=== PATIENT | female | born 1985 | race Caucasian/White ===

== ENCOUNTER 2022-07-15 17:27 | Observation (INO) | payer OTHER ==
[~2022-07-15] VITALS: Ht 162.6 cm; Wt 155.6 kg
[2022-07-15 17:33] VITALS: BP 177/104
--- NOTE | 2022-07-15 18:00 | NUR ---
36 Y/O FEMALE C/O SHORTNESS OF BREATH THAT STARTED SUDDENLY TODAY. STATES SHORTNESS OF BREATH IS CONSTANT AND WORSENS WITH MOVEMENT. STATES SHE HAS A LOT OF STRESS AT HOME AND UNSURE IF THAT IS CAUSE. ALSO C/O 09/06, THROBBING HEADACHE + BLURRED VISION AND DIZZINESS X TODAY. DENIES SYNCOPE, FEVER, CHILLS, COUGH, NVD. TOOK ADVIL WITHOUT RELIEF. SMOKER X 15 YEARS 1/PER DAY. PMH: DENIES NKA
--- NOTE | 2022-07-15 18:52 | NUR ---
LAB AT BEDSIDE
--- NOTE | 2022-07-15 18:53 | NUR ---
DR GONZALEZ AT BEDSIDE FOR EVALUATION
[2022-07-15] MEDS ORDERED: METOCLOPRAMIDE 10 MG TAB PO ONE (18:55)
[2022-07-15] MEDS ORDERED: ACETAMINOPHEN EXTRA STRENGTH 500 MG TAB PO ONE (18:55)
[2022-07-15] MEDS ORDERED: ALBUTEROL SULFATE/IPRATROPIU 3 ML SOL IH ONE (18:55)
[2022-07-15] MEDS ORDERED: MECLIZINE 25 MG TAB PO ONE (18:55)
--- NOTE | 2022-07-15 18:58 | NUR ---
LAB AT BEDSIDE
--- NOTE | 2022-07-15 18:58 | NUR ---
DWIGHT GilbertNORMAN) COLLECTED AND HANDED TO DENISE OROZCO
--- NOTE | 2022-07-15 19:08 | NUR ---
XRAY AT BEDSIDE
[2022-07-15 19:18] LABS: BASOPHILS % (AUTO) 0.4 % (0.0-2.0); EOSINOPHILS # (AUTO) 0.2 K/uL (0-0.4); EOSINOPHILS % (AUTO) 2.2 % (0.0-4.0); HEMATOCRIT 37.7 % (36-48); HEMOGLOBIN 12.5 g/dL (12.0-16.0); LYMPHOCYTES # (AUTO) 2.2 K/uL (2.5-16.5); LYMPHOCYTES % (AUTO) 23.7 % (20.5-51.1); MEAN CORPUSCULAR HEMOGLOBIN 28 pg (27-31); MEAN CORPUSCULAR HGB CONC 33 g/dL (33-37); MEAN CORPUSCULAR VOLUME 84.8 fL (80-94); MONOCYTES # (AUTO) 0.4 K/uL (0.8-1.0); MONOCYTES % (AUTO) 4.9 % (1.7-9.3); NEUTROPHILS # (AUTO) 6.3 K/uL (1.8-7.7); NEUTROPHILS % (AUTO) 68.8 % (42.2-75.2); PLATELET COUNT (AUTO) 192 K/uL (140-450); RED BLOOD CELL COUNT(AUTO) 4.45 MIL/uL (4.20-5.40); WHITE BLOOD COUNT (AUTO) 9.1 K/uL (4.8-10.8)
--- NOTE | 2022-07-15 19:26 | NUR ---
Pt report given to KAIDEN Fonseca. Transfer of care at this time.
[2022-07-15 19:36] LABS: ALBUMIN 3.1 g/dL (3.4-5.0); ASPARTATE AMINOTRANSFERASE 26 U/L (15-37); CHLORIDE 103 mmol/L (98-107); CREATININE 0.8 mg/dL (0.6-1.3); GFR ARICAN-AMERICAN 103 mL/min (>90); GLUCOSE 183 mg/dL (74-106); SODIUM SERUM 139 mmol/L (136-145); TOTAL BILIRUBIN 0.2 mg/dL (0.0-1.0); UREA NITROGEN, BLOOD 13 mg/dL (7-18)
--- NOTE | 2022-07-15 19:47 | NUR ---
RT AT BEDSIDE TO GIVE BREATHING TREATMENT
[2022-07-15] MEDS ORDERED: FUROSEMIDE 40 MG/4 ML VIAL IVP ONE (21:15)
[2022-07-15] MEDS ORDERED: ONDANSETRON 4 MG/2 ML VIAL IVP PRN (21:50)
[2022-07-15] MEDS ORDERED: LORazepam 2 MG/ML VIAL IVP PRN (21:50)
[2022-07-15] MEDS ORDERED: HYDROmorphone PFS 2 MG/ML SYR IVP PRN (21:50)
[2022-07-15 22:00] LABS: APPEARANCE,URINE SL CLOUDY (CLEAR); BILIRUBIN,URINE NEGATIVE (NEGATIVE); BLOOD, URINE NEGATIVE (NEGATIVE); COLOR,URINE YELLOW (YELLOW); LEUKOCYTE ESTERASE ,URINE NEGATIVE (NEGATIVE); NITRITE, URINE NEGATIVE (NEGATIVE); UGLUCOSE NEGATIVE (NEGATIVE)
[2022-07-15 22:24] LABS: BARBITURATE, URINE NEGATIVE ng/ml (NEG <=200); BENZODIAZEPINE, URINE NEGATIVE ng/mL (NEG <=200); CANNABINOID, URINE NEGATIVE ng/mL (NEG <=50); COCAINE, URINE NEGATIVE ng/mL (NEG <=300); OPIATE, URINE NEGATIVE ng/mL (NEG <=2000); PHENCYCLIDINE SCREEN,URINE NEGATIVE ng/mL (NEG <=25)
[2022-07-16 00:30] VITALS: BP 122/62
--- NOTE | 2022-07-16 00:30 | NUR ---
Patient will be admitted to care of DR BARNETT. Admited to TELE. Will go to room 105A. Belongings list completed. Report to KAIDEN FLORES.
--- NOTE | 2022-07-16 00:30 | NUR ---
RECEIVED PT FROM ER / WINIFRED WALKS TO BED , AAOX4 , IV SITE INTACT AND PATENT . NID - O2 SAT WNL . DENIES PAIN AT THIS TIME . GOT TYLENOL AT ER FOR MADRIGAL . ADMISSION ASSESSMENT - DONE , FALL RISK DUE TO DIZZINESS , PUT PT ON FALL RISK PREVENTION , REMINDS HER TO HIT THE CALL LIGHT WHENEVER SHE NEEDS TO GO TO BATH ROOM , REMINDS HER TO HIT THE CALL LIGHT WHENEVER SHE GOT PEE - STRICTLY I AND O - PLAN OF CARE DISCUSS - VERBALIZES UNDERSTANDING . ON TELE MONITOR , DENIES SOB AT THIS TIME , WILL CONT. TO MONITOR .
--- NOTE | 2022-07-16 00:35 | NUR ---
MORE URINE OBTAINED AND HANDED TO LAB TO COMPLETE URINE TESTS
--- NOTE | 2022-07-16 02:00 | NUR ---
SLEEPING , AROUSABLE , NO COMPLAIN MADE AT THIS TIME , CALL LIGHT WITHIN REACH .
[2022-07-16 04:00] VITALS: BP 122/62
--- NOTE | 2022-07-16 04:00 | NUR ---
SLEEPING , AROUSABLE , DENIES PAIN , ON TELE MONITOR . CALL LIGHT WITHIN REACH . O2 SAT 95 % ,
--- NOTE | 2022-07-16 05:46 | NUR ---
NO YELLOW GOWN FIT FOR PT - WILL ENDORSE.
[2022-07-16] MEDS ORDERED: LORazepam 1 MG TAB PO PRN (05:55)
--- NOTE | 2022-07-16 07:05 | NUR ---
RECEIVED BEDSIDE REPORT FROM MAILROOM COORDINATOR NURSE FOR CONTINUITY OF CARE. PATIENT IS AWAKE, ALERT, AND COOPERATIVE. US TECH AT BEDSIDE. RESPIRATION EVEN UNLABORED ON ROOM AIR. NO DISTRESS NOTED. SKIN IS WARM AND DRY. IV NOTED SALINE LOCKED. PLAN OF CARE DISCUSSED. ALL SAFETY MEASURES IN PLACE. BED IS AT LOW POSITION. CALL LIGHT WITHIN REACH. WILL CONTINUE TO MONITOR.
[2022-07-16 07:11] LABS: BASOPHILS % (AUTO) 0.5 % (0.0-2.0); EOSINOPHILS # (AUTO) 0.2 K/uL (0-0.4); EOSINOPHILS % (AUTO) 3.5 % (0.0-4.0); HEMOGLOBIN 12.5 g/dL (12.0-16.0); LYMPHOCYTES % (AUTO) 28.8 % (20.5-51.1); MEAN CORPUSCULAR HEMOGLOBIN 28 pg (27-31); MEAN CORPUSCULAR HGB CONC 33 g/dL (33-37); MEAN CORPUSCULAR VOLUME 85.3 fL (80-94); MONOCYTES # (AUTO) 0.5 K/uL (0.8-1.0); MONOCYTES % (AUTO) 6.9 % (1.7-9.3); NEUTROPHILS # (AUTO) 4.2 K/uL (1.8-7.7); NEUTROPHILS % (AUTO) 60.3 % (42.2-75.2); PLATELET COUNT (AUTO) 190 K/uL (140-450); RED BLOOD CELL COUNT(AUTO) 4.45 MIL/uL (4.20-5.40); RED CELL DISTRIBUTION WIDTH 14.3 % (11.6-13.7)
--- NOTE | 2022-07-16 07:22 | NUR ---
endorseed - pt - stable .
[2022-07-16 08:00] VITALS: BP 164/92
[2022-07-16 08:07] LABS: ANION GAP 10.7 (8-16); CREATININE 0.7 mg/dL (0.6-1.3); MAGNESIUM 1.9 mg/dL (1.8-2.4); POTASSIUM 3.7 mmol/L (3.5-5.1); TOTAL BILIRUBIN 0.3 mg/dL (0.0-1.0)
[2022-07-16] MEDS: ASPIRIN 81 MG TAB.CHEW PO SCH (08:47)
[2022-07-16] MEDS: FUROSEMIDE 40 MG/4 ML VIAL IVP SCH (08:48)
--- NOTE | 2022-07-16 08:48 | NUR ---
ALL SCHEDULED MEDS WERE GIVEN PER ORDER. WILL CONTINUE TO MONITOR
[2022-07-16] MEDS: ENOXAPARIN 40 MG/0.4 ML SYR SUBQ SCH (08:53)
--- NOTE | 2022-07-16 09:17 | NUR ---
PATIENT HAS BEEN SCREENED AND CATEGORIZED MODERATE NUTRITION RISK. PATIENT WILL BE SEEN WITHIN 3-5 DAYS OF ADMISSION. / FRANCISCA [address] RD
--- NOTE | 2022-07-16 10:57 | NUR ---
MADE ROUNDS PATIENT IS AWAKE, NO DISTRESS NOTED.
--- NOTE | 2022-07-16 11:19 | NUR ---
ENDORSED PATIENT TO NURSE FOR CONTINUITY OF CARE.
[2022-07-16 12:00] VITALS: BP 132/73
[2022-07-16 15:39] VITALS: BP 153/83
[2022-07-16 20:00] VITALS: BP 144/90
--- NOTE | 2022-07-16 22:10 | NUR ---
FOUND PT W/O IV ACCESS - AM NURSE DOES NOT ENDORSED IT . WILL INSERT NEW ONE Addendum: 07/16/22 at 2314 by Kayla Chamberlain RN AT 2313 INSERT NEW IV ACCESS - PT TOLERATED THE PROCEDURE , MIN. BLEEDING . - SL. Addendum: 07/17/22 at 0017 by Kayla Chamberlain RN THE ABOVE NURSE'S NOTES IS TIMED ERROR ENTRY , INSTEAD OF Shukri MONTILLA
[2022-07-17] VITALS: BP 140/91
--- NOTE | 2022-07-17 | NUR ---
ROUNDS , NO COMPLAIN MADE , ON TELE MONITOR .
--- NOTE | 2022-07-17 02:00 | NUR ---
ROUNDS , SLEEPING , CHEST RISE AND FALL EQUALLY , ON TELE MONITOR , CALL LIGHT WITHIN REACH .
[2022-07-17 04:00] VITALS: BP 145/95
--- NOTE | 2022-07-17 04:00 | NUR ---
ROUNDS , NO COMPLAIN MADE , ON TELE MONITOR , CALL LIGHT WITHIN REACH
--- NOTE | 2022-07-17 07:15 | NUR ---
ENDORSED - PT - STABLE - ON TELE MONITOR
--- NOTE | 2022-07-17 07:18 | NUR ---
RECEIVED REPORT FROM DUMP GRADER NURSE FOR CONTINUITY OF CARE. PT SLEEPING, EASILY AROUSABLE BY VERBAL STIMULI. RESPIRATIONS EVEN AND UNLABORED ON RA. NO DISTRESS NOTED. A&O4, ABLE TO COMMUNICATE NEEDS. PT ON TELE MONITOR. IV SITE ON JUSTIN 24G, SL. CALL LIGHT WITHIN REACH. SAFETY PRECAUTIONS IN PLACE. WILL CONTINUE TO MONITOR.
[2022-07-17 08:00] VITALS: BP 153/84
[2022-07-17] MEDS: ASPIRIN 81 MG TAB.CHEW PO SCH (08:41)
[2022-07-17] MEDS: ACETAMINOPHEN 325 MG TAB PO PRN ×2 (08:41→22:27)
[2022-07-17] MEDS: ENOXAPARIN 40 MG/0.4 ML SYR SUBQ SCH (08:42)
--- NOTE | 2022-07-17 08:48 | NUR ---
ADMINISTERED SCHEDULED MORNING MEDS. PT COMPLAINED OF MADRIGAL 3/10. PRN PAIN MED GIVEN. PT TEACHING ABOUT MEDS GIVEN PT VERBALIZED UNDERSTANDING. KAIDEN MOONEY ADMINISTERED SCHEDULED IV LASIX. PT TOLERATED WELL. WILL CONTINUE TO MONITOR.
[2022-07-17] MEDS: FUROSEMIDE 40 MG/4 ML VIAL IVP SCH (09:49)
--- NOTE | 2022-07-17 11:45 | NUR ---
DID ROUNDS. PT SLEEPING, AROUSABLE BY NAME AND TOUCH. RESPIRATION S EVEN AND UNLABORED. CALL LIGHT WITHIN REACH. SAFETY PRECAUTION SIN PLACE. WILL CONTINUE TO MONITOR.
[2022-07-17 12:00] VITALS: BP 155/84
[2022-07-17 16:00] VITALS: BP 141/80
--- NOTE | 2022-07-17 16:05 | NUR ---
PT AWAKE, WITH SISTER AT BEDSIDE. REQUESTED TO TAKE A SHOWER. ABLE TO AMBULATE AND TOOK A SHOWER INDEPENDENTLY WITH SISTER ON STANDBY INSIDE SHOWER ROOM. PT STATED SHE FELT BETTER AFTER TAKING A SHOWER. NO COMPLAINTS OF PAIN. NO SOB. PT SAFELY SITTING AT BEDSIDE. SAFETY PRECAUTIONS IN PLACE. WILL CONTINUE TO MONITOR.
--- NOTE | 2022-07-17 19:20 | NUR ---
ENDORSED PT TO REGISTERED VETERINARY TECHNICIAN NURSE FOR CONTINUITY OF CARE. ALL NEEDS MET THROUGHOUT SHIFT. PT IS STABLE.
--- NOTE | 2022-07-17 19:21 | NUR ---
RECEIVED REPORT FROM AM NURSE. PATIENT SLEEPING IN BED. NO SOB NOTED. BREATHING REGULAR UNLABORED. SAFETY MEASURES IN PLACE. CALL LIGHT WITHIN REACH. WILL CONTINUE TO MONITOR PT.
[2022-07-17 20:00] VITALS: BP 145/74
--- NOTE | 2022-07-17 22:27 | NUR ---
PATIENT COMPLAINED OF MILD HEADACHE, MEDICATED.
--- NOTE | 2022-07-17 23:55 | NUR ---
ROUNDED PATIENT, PT AWAKE BROWSING HER PHONE. BREATHING NORMAL, NON LABORED. ASKED FOR JELLO, GIVEN. ALL NEEDS MET. CALL LIGHT ON EASY REACH.
[2022-07-18] VITALS: BP 136/70
[2022-07-18 04:00] VITALS: BP 148/85
--- NOTE | 2022-07-18 04:05 | NUR ---
V/S TAKEN AND RECORDED. PATIENT IN NO ACUTE DISTRESS NOTED.
--- NOTE | 2022-07-18 07:08 | NUR ---
ENDORSED PATIENT TO MORNING NURSE FOR CONTINUITY OF CARE. PATIENT IN STABLE CONDITION.
--- NOTE | 2022-07-18 07:09 | NUR ---
RECEIVED REPORT FROM MANAGER LICENSING NURSE FOR CONTINUITY OF CARE. PT SLEEPING, AROUSABLE BY VERBAL STIMULI AND TOUCH. RESPIRATIONS EVEN AND UNLABORED ON RA. NO DISTRESS NOTED. A&O4, ABLE TO COMMUNICATE NEEDS. ON FLAME BURNER. SKIN INTACT, DRY AND WARM TO TOUCH. IV SITE AT JUSTIN G24, SL. PT CONTINENT TO BOWEL AND BLADDER. CALL LIGHT WITHIN REACH. SAFETY PRECAUTIONS IN PLACE. WILL CONTINUE TO MONITOR.
[2022-07-18 08:00] VITALS: BP 155/77
[2022-07-18] MEDS: ASPIRIN 81 MG TAB.CHEW PO SCH (09:01)
[2022-07-18] MEDS: FUROSEMIDE 40 MG/4 ML VIAL IVP SCH (09:01)
[2022-07-18] MEDS: ENOXAPARIN 40 MG/0.4 ML SYR SUBQ SCH (09:05)
[2022-07-18] MEDS: ACETAMINOPHEN 325 MG TAB PO PRN (09:08)
--- NOTE | 2022-07-18 09:08 | NUR ---
ADMINISTERED SCHEDULED MORNING MEDS. PT COMPLAINED OF MADRIGAL 3/10. PRN PAIN MED GIVEN. IVP LASIX ADMINISTERED BY KAIDEN VASQUEZ. PT TEACHING ABOUT MED GIVEN. PT VERBALIZED UNDERSTANDING. WILL CONTINUE TO MONITOR.
--- NOTE | 2022-07-18 11:32 | NUR ---
PT SEEN AND CHECKED BY DR BARNETT.
[2022-07-18 12:00] VITALS: BP 154/72
[2022-07-18] MEDS ORDERED: FURO-570 PO (12:01)
[2022-07-18] MEDS ORDERED: AMLO10TA PO (12:02)
[2022-07-18] MEDS ORDERED: POTA10TA70 PO (12:02)
[2022-07-18 12:07] VITALS: BP 155/77
--- NOTE | 2022-07-18 12:30 | NUR ---
INFORMED PT ABOUT THE DC ORDER. PT VERBALIZED UNDERSTANDING. PT STATED TOLERABLE MADRIGAL. NO SOB. NO DIFFICULTY BREATHING. SAFETY PRECAUTIONS IN PLACE.
--- NOTE | 2022-07-18 12:55 | NUR ---
PT DC HOME. DC PAPERS DISCUSSED WITH THE PT. PT VERBALIZED UNDERSTANDING. REMOVED IV CATHETER INTACT. REMOVED ID WRIST BAND. ALL BELONGINGS TAKEN UPON DC. PT WALKED OUT BY THE NURSE TO THE FRONT LOBBY. PT IS STABLE.
== END 2022-07-18 15:12 | disposition home or self-care (01) ==
LOC: MED 17:27 → MTU 21:52
PROVIDERS: ADMIT Internal Medicine; ATTEND Internal Medicine
DX: I11.0 Hypertensive heart disease with heart failure (principal); I50.9 Heart failure, unspecified; I42.7 Cardiomyopathy due to drug and external agent; E87.70 Fluid overload, unspecified; F10.10 Alcohol abuse, uncomplicated; F15.10 Other stimulant abuse, uncomplicated; F12.10 Cannabis abuse, uncomplicated; E66.01 Morbid (severe) obesity due to excess calories; F17.210 Nicotine dependence, cigarettes, uncomplicated; Z86.16 Personal history of COVID-19; Z79.899 Other long term (current) drug therapy
CPT/HCPCS: 36415; 71045; 80053; 80305; 81003; 83735; 83880; 84484; 85025; 85379; 87081; 87426; 93005; 94640; 96372; 96374; 96376; 99285; C8929; G0378; J1650; J1940; J8597